=== PATIENT | female | born 1995 | race Caucasian/White ===

== ENCOUNTER → 2016-12-14 | Outpatient (CLI) | payer OTHER ==
[~2016-12-14] MED LIST: AMOXIL500 MG PO; AUGMENTIN 875 M1 TAB PO; GENTAMICIN O5 ML/BOT OP; MOTRIN400 MG PO; ZITHROMAX Z PA250 MG PO
[2016-12-14 13:15] LABS: HEMOGLOBIN 13.8 g/dL (12.2-16.2)
[2016-12-14 13:16] LABS: LYMPH # 2.2 K/mm3 (0.7-4.5); LYMPH % 26.8 % (10-50.0)
[2016-12-14 15:44] LABS: BUN 10 mg/dL (7-18)
[2016-12-14 15:52] LABS: GFR (ESTIMATED) 125 ML/MIN (59-)
== END ==
LOC: LAB 12:21
PROVIDERS: Nurse Practitioner Family
DX: R00.2 Palpitations (principal)